=== PATIENT | female | born 1965 | race Two or more races ===

== ENCOUNTER 2017-08-01 11:41 | Day surgery (SDC) | payer OTHER ==
[~2017-08-01] VITALS: Ht 154.9 cm; Wt 65.2 kg
[2017-08-01] VITALS (16 sets, daily range): BP systolic 122–180; BP diastolic 61–78; PULSE 52–83; RESP 14–22; Ht 154.9 cm; Wt 65.2 kg
[~2017-08-01 11:41] MED LIST: CEFAZOLIN 1 GM INJ ONE; CEFAZOLIN 1 GM/50 ML (PMX) 50 ML IVPB SCH
[2017-08-01] MEDS ORDERED: OMEP20CA16 PO (12:19)
--- NOTE | 2017-08-01 12:51 | RADRPT ---
PROCEDURE: Chest x-ray CLINICAL INDICATION: Preop TECHNIQUE: Chest single view COMPARISON: None FINDINGS: The heart is normal in size. The pulmonary vessels are normal in caliber. The lungs are clear. Th e costophrenic angles are sharp. The visualized bony thorax is unremarkable. IMPRESSION: No acute cardiopulmonary disease. RPTAT: HH .Zhou Mackenzie MD, Date Time Electronically viewed and signed by .Zhou Mackenzie MD, MD on 08/01/2017 12:51 .W/
[2017-08-01] MEDS ORDERED: BUPIVACAINE 0.25% (MPF) 30 ML INJ ONE (13:26)
[2017-08-01] MEDS ORDERED: PROPOFOL 20 ML ONE (14:01)
[2017-08-01] MEDS ORDERED: ROCURONIUM 50 MG INJ ONE (14:01)
[2017-08-01] MEDS ORDERED: ROPIVACAINE 0.2% 20 ML VIAL ONE (14:02)
[2017-08-01] MEDS ORDERED: FENTAnyl 50 MCG/ML VIAL ONE (14:02)
[2017-08-01] MEDS ORDERED: MIDAZOLAM 1 MG/ML 2 ML INJ ONE (14:02)
[2017-08-01] MEDS ORDERED: ONDANSETRON 4 MG INJ ONE (15:06)
[2017-08-01] MEDS ORDERED: KETOROLAC 30 MG INJ ONE (15:06)
[2017-08-01] MEDS ORDERED: METOCLOPRAMIDE 10 MG INJ ONE (15:06)
[2017-08-01] MEDS ORDERED: SUGAMMADEX SODIUM 200 MG/2 ML VIAL IV ONE (15:07)
[2017-08-01] MEDS ORDERED: DEXAMETHASONE 4 MG/ML 1 ML INJ ONE (15:07)
--- NOTE | 2017-08-01 15:15 | OPR ---
Date/Time of Note Date/Time of Note DATE: 08/01/17 TIME: 15:13 Operative Report Procedure Date: Aug 01, 2017 Preoperative Diagnosis symptomatic gallstones Postoperative Diagnosis same Operation/Procedure Performed 1. laparoscopic cholecystectomy 2. therapeutic injection of subcutaneous local anesthesia Surgeon see signature line Data Integration Architect none Anesthesia Type: general Estimated Blood Loss: 10 - 50 ml's Transfusion none Specimen gallbladder Grafts/Implants none Complications none Pt Condition Post Procedure: stable Indications This is a 51-year-old female with symptoms and gallstones. She requests surgical excision of her gallbladder. Risks alternatives benefits and percent were discussed with patient. Patient's best understanding consents to the operation. Procedure Description Patient is taken to the OR and prepped and draped in usual sterile fashion. Surgical timeout was performed. IV antibiotics given. Supraumbilical midline incision is made. Dissection Carrs carried onto the fascia. 0 Vicryl stay sutures were placed on either side the midline. The midline is opened and balloon Randhawa trocar is introduced. Pneumoperitoneum is established. Midepigastric 12 mm optical trocar was placed under direct visualization. Right upper quadrant upper flank 5 mm optical trochars placed under direct visualization. Upon initial inspection there are some adhesions to the gallbladder and intra-abdominal adhesions these were taken down. Due to the intrahepatic nature of the gallbladder dome down approach was initially started. Careful dissection with the cautery identified the cystic duct and cystic artery. Cystic artery was divided with 3 clips proximal and clip distal. The cystic duct was divided due to thickened tissues with a 35 mm echelon vascular stapler. Additional clips were placed to reinforce the staple line and create hemostasis. The gallbladder bed was hemostatic. Additional snow was placed for reinforcement of hemostasis. The gallbladder was retrieved using Endo Catch bag. Ports removed under direct physician. 0 Vicryl stay sutures were tied down. Skin was closed with interrupted 4-0 Monocryl and running 4-0 Monocryl. Therapeutic subcutaneous local anesthesia was injected throughout the incision site. Dressings were applied. Tyra GORMAN Aug 01, 2017 15:15
[2017-08-01] MEDS ORDERED: hydrALAzine 20 MG INJ IV PRN (15:30)
[2017-08-01] MEDS ORDERED: HYDROCODONE/APAP (5/325) TAB PO ONE (15:30)
[2017-08-01] MEDS ORDERED: DIPHENHYDRAMINE 50 MG INJ IV PRN (15:30)
[2017-08-01] MEDS ORDERED: METOCLOPRAMIDE 10 MG INJ IV PRN (15:30)
[2017-08-01] MEDS ORDERED: HYDROmorphONE (0.2 MG/ML) 10ML SYG IV PRN ×2 (15:30)
[2017-08-01] MEDS ORDERED: EPHEDrine SULFATE 50 MG/5 ML SYG IV PRN (15:30)
[2017-08-01] MEDS ORDERED: FENTAnyl 50 MCG/ML VIAL IV PRN ×3 (15:30)
[2017-08-01] MEDS ORDERED: LABETALOL HCL 20MG INJ IV PRN (15:30)
[2017-08-01] MEDS ORDERED: ONDANSETRON 4 MG INJ IV PRN (15:30)
[2017-08-01] MEDS ORDERED: MEPERIDINE 25 MG INJ IV PRN (15:30)
--- NOTE | 2017-08-02 13:17 | RADRPT ---
Vent Rate: 64 bpm RR Interval: 0 msec RI Interval: 154 msec QRS Duration: 80 msec QT Interval: 418 msec QTC Interval: 431 msec P-R-T [place]: 59 - 20 - 31 degrees Normal sinus rhythm Normal ECG Electronically Signed By: Yuri Aranda [id number]
== END 2017-08-01 17:22 | disposition home or self-care (01) ==
LOC: SDS 11:41
PROVIDERS: ATTEND Surgery
DX: K82.4 Cholesterolosis of gallbladder (principal); K81.1 Chronic cholecystitis; E78.5 Hyperlipidemia, unspecified
CPT/HCPCS: 47562; 71010; 93005; J0360; J0690; J1100; J1885; J2250; J2405; J2765; J2795; J3010